=== PATIENT | female | born 1950 | race Caucasian/White ===

== ENCOUNTER → 2017-10-09 09:01 | Outpatient (CLI) | payer MEDICARE, SELFPAY ==
--- NOTE | 2017-10-09 09:16 | US_ITS ---
STUDY: SUPERFICIAL ULTRASOUND - LOWER EXTREMITY REASON FOR EXAM: Female, 67 years old. Adenopathy - bilat groin TECHNIQUE: A superficial ultrasound was performed with real-time and static jacobs-scale imaging. COMPARISON: None. FINDINGS: In the right groin there is a palpable nodule measuring 25 x 37 x 18 mm. Within this palpable nodule, there is a right cystic center nodule measuring 15 x 12 mm. There is an additional 8 x 11 x 7 mm nodule and a 17 x 8 x 5 mm nodule. In the left groin there is a lymph node measuring 7 x 7 x 5 mm. US/Ext Non Vasc Limited/Soft Tiss IMPRESSION: Right inguinal adenopathy. There is a palpable nodule in the right inguinal region measures 37 mm. This appears abnormal and is quite large. It has a central cystic area which may be central necrosis. This does not have the typical appearance of a lymph node. Electronically Signed: William Liu MD at 20:10 EDT , Service support ,
[2017-10-09 10:28] LABS: Absolute Lymphocyte Count 1.17 X10^3/ul (0.83-4.51); Absolute Neutrophil Count 0.7 X10^3/uL (2.0-7.7); Hemoglobin 11.5 g/dl (12.0-15.0); Lymphocyte # 1.17 X10^3/ul (4.0); Lymphocyte % 63.6 % (19-41); Mean Corp Hgb Conc 32.9 g/gl (32-36); Mean Corpuscular Hgb 31.9 pg (27.0-32.0); Monocyte# 0.02 X10^3/uL; Monocyte% 1.1 % (0-10); Neutrophil # 0.65 X10^3/uL (2.7-7.7); Neutrophil % 35.3 % (47-70); Platelet Count 145 K/mm3 (150-450); RBC Distribution Width CV 13.7 % (11.6-14.6); RBC Distribution Width SD 47.2 fl (35.1-43.9); Red Blood Count 3.61 M/mm3 (4.2-5.4); White Blood Count 1.8 K/mm3 (4.4-11.0)
[2017-10-09 10:31] LABS: Differential Indicated SCAN CRITERIA MET; POSITIVE COUNT NO; POSITIVE DIFFERENTIAL YES; POSITIVE MORPHOLOGY NO
== END ==
PROVIDERS: Family Provider Family Medicine; PCP Family Medicine; Visit Provider Family Medicine
DX: R59.1 Generalized enlarged lymph nodes (principal)
CPT/HCPCS: 36415; 76882; 85025

== ENCOUNTER → 2017-10-11 11:57 | Outpatient (CLI) | payer MEDICARE, SELFPAY ==
[2017-10-11 16:12] LABS: Absolute Lymphocyte Count 0.66 X10^3/ul (0.83-4.51); Absolute Neutrophil Count 0.5 X10^3/uL (2.0-7.7); Basophil# 0.01 X10^3/uL; Basophil% 0.8 % (0-1); Eosinophil# 0.01 X10^3/uL; Eosinophils% 0.8 % (0-5); Hematocrit 35.6 % (37-47); Hemoglobin 11.7 g/dl (12.0-15.0); Lymphocyte # 0.66 X10^3/ul (4.0); Lymphocyte % 54.5 % (19-41); Mean Corp Hgb Conc 32.9 g/gl (32-36); Mean Corpuscular Volume 97.3 fL (81-99); Mean Platelet Vol. 9.3 fl (6.2-12.0); Monocyte# 0.01 X10^3/uL; Monocyte% 0.8 % (0-10); Neutrophil # 0.52 X10^3/uL (2.7-7.7); Neutrophil % 43.1 % (47-70); Platelet Count 155 K/mm3 (150-450); RBC Distribution Width CV 13.8 % (11.6-14.6); RBC Distribution Width SD 47.4 fl (35.1-43.9); Red Blood Count 3.66 M/mm3 (4.2-5.4)
[2017-10-11 16:16] LABS: Differential Indicated SCAN CRITERIA MET; POSITIVE COUNT YES; POSITIVE DIFFERENTIAL YES; POSITIVE MORPHOLOGY NO; White Blood Count 1.2 K/mm3 (4.4-11.0)
[2017-10-11 16:42] LABS: Differential Comment SCANNED
[2017-10-12 13:55] LABS: Pathologist Review Reviewed
== END ==
PROVIDERS: Family Provider Family Medicine; PCP Family Medicine; Visit Provider Family Medicine
DX: R19.09 Other intra-abdominal and pelvic swelling, mass and lump (principal)
CPT/HCPCS: 36415; 85025